=== PATIENT | male | born 1995 | race African-American/Black ===

== ENCOUNTER 2017-12-13 23:32 | Emergency (ER) | payer OTHER ==
--- NOTE | 2017-12-13 23:52 | ER Report ---
History and Physical Time Seen By MD: 23:51 Hx. of Stated Complaint: 30 MIN AGO PT REPORTS CHEST PAIN L SIDE RADIATING TO LOW BACK, SHAKY, TRIED COCAINE ON MONDAY HPI/ROS CHIEF COMPLAINT: chest pain HISTORY OF PRESENT ILLNESS: This is a 22 year old male. He started having chest pain this evening. Sharp pain, radiated across his chest, into his left arm. Somewhat into his back as well. The pain is mostly gone now. He has never had a problem like this in the past. No history of heart problems. He did try using some cocaine about 5 days ago, but none since. He did smoke some marijuana tonight. He has no shortness of breath. He has no nausea or vomiting. No fevers or chills. Mild sore throat and cough earlier in the week. Allergies: Coded Allergies: No Known Drug Allergies (Unverified , 12/13/17) Home Meds No Active Prescriptions or Reported Meds Reviewed Nurses Notes: Yes Hx Substance Use Disorder: Yes (MARIJUANA/COCAINE ) Hx Alcohol Use: Yes (OCC) Constitutional Vital Sign - Last 24 Hours 12/13/17 12/13/17 12/13/17 12/13/17 23:32 23:37 23:38 23:43 Temp 97.8 Pulse ??? 121 Resp 16 B/P (MAP) 154/86 (108) 141/68 (92) Pulse Ox 98 O2 Delivery Room Air 12/13/17 12/13/17 12/14/17 12/14/17 23:45 23:47 00:00 00:02 Pulse 93 89 B/P (MAP) 152/69 (96) 129/81 (97) Pulse Ox 97 95 12/14/17 12/14/17 12/14/17 12/14/17 00:15 00:30 00:32 00:45 Pulse 69 Resp 77 B/P (MAP) ???/??? (1665) 125/59 (81) 114/60 (78) Pulse Ox 94 12/14/17 00:47 Pulse 61 Resp 21 Pulse Ox 95 Physical Exam General Appearance: The patient is alert. No acute distress. Eyes: Pupils are equal, round. No pallor, injection or icterus. ENT: Mucous membranes are moist. Normal oral mucosa. Posterior oropharynx is normal. Neck: Supple and non tender. Respiratory: Lungs are clear to auscultation. Cardiovascular: Regular rate and rhythm. No murmurs, gallops or rubs. Normal capillary refill. Gastrointestinal: Abdomen is soft and non tender. Nondistended. Normal active bowel sounds. Neurological: Alert and oriented x3. Skin: Warm and dry. Musculoskeletal: Chest non-tender to palpation. No tenderness in palpation of the thoracic and lumbar spine. DIFFERENTIAL DIAGNOSIS: After history and physical exam, differential diagnosis was considered for chest pain including but not limited to myocardial ischemia, pericarditis pulmonary embolus, chest wall pain, pleural inflammation and pulmonary infectious causes. Medical Decision Making Data Points Result Diagram: 12/14/17 0000 12/14/17 0000 Laboratory Hematology Test 12/14/17 00:00 Red Blood Count 5.30 M/uL (4.00-5.60) Mean Corpuscular Volume 82.5 fL (80.0-96.0) Mean Corpuscular Hemoglobin 28.2 pg (26.0-33.0) Mean Corpuscular Hemoglobin Concent 34.2 g/dL (32.0-36.0) Red Cell Distribution Width 13.2 % (11.5-14.5) Mean Platelet Volume 8.4 fL (7.2-11.1) Neutrophils (%) (Auto) % (39.4-72.5) Lymphocytes (%) (Auto) % (17.6-49.6) Monocytes (%) (Auto) % (4.1-12.4) Eosinophils (%) (Auto) % (0.4-6.7) Basophils (%) (Auto) % (0.3-1.4) Nucleated RBC Relative Count (auto) /100WBC Neutrophils # (Auto) K/uL (2.0-7.4) Lymphocytes # (Auto) K/uL (1.3-3.6) Monocytes # (Auto) K/uL (0.3-1.0) Eosinophils # (Auto) K/uL (0.0-0.5) Basophils # (Auto) K/uL (0.0-0.1) Nucleated RBC Absolute Count (auto) K/uL Neutrophils % (Manual) 26 % (39.4-72.5) Band Neutrophils % 1 % Lymphocytes % (Manual) 46 % (17.6-49.6) Atypical Lymphocytes % 21 % Monocytes % (Manual) 5 % (4.1-12.4) Eosinophils % (Manual) 1 % (0.4-6.7) Basophils % (Manual) 0 % (0.3-1.4) Differential Comment Y Peripheral Blood Smear Yes Y/N D-Dimer Quantitative (PE/DVT) 0.29 ug/ml (0-0.50) Sodium Level 140 mmol/L (137-145) Potassium Level 3.2 mmol/L (3.5-5.0) Chloride Level 100 mmol/L (98-107) Carbon Dioxide Level 23 mmol/L (22-30) Blood Urea Nitrogen 21 mg/dl (9-21) Creatinine 1.20 mg/dl (0.66-1.25) Glomerular Filtration Rate Calc > 60.0 Random Glucose 120 mg/dl (75-110) Calcium Level 9.3 mg/dl (8.4-10.2) Total Bilirubin 0.4 mg/dl (0.2-1.3) Aspartate Amino Transf (AST/SGOT) 23 U/L (0-35) Alanine Aminotransferase (ALT/SGPT) 24 U/L (0-56) Alkaline Phosphatase 48 U/L (0-126) Troponin I < 0.012 ng/ml Total Protein 7.3 gm/dl (6.3-8.2) Albumin 4.2 g/dl (3.5-5.0) Chemistry Test 12/14/17 00:00 White Blood Count 7.7 k/uL (4.5-11.0) Red Blood Count 5.30 M/uL (4.00-5.60) Hemoglobin 14.9 g/dL (14.0-18.0) Hematocrit 43.7 % (42.0-52.0) Mean Corpuscular Volume 82.5 fL (80.0-96.0) Mean Corpuscular Hemoglobin 28.2 pg (26.0-33.0) Mean Corpuscular Hemoglobin Concent 34.2 g/dL (32.0-36.0) Red Cell Distribution Width 13.2 % (11.5-14.5) Platelet Count 181 K/uL (150-450) Mean Platelet Volume 8.4 fL (7.2-11.1) Neutrophils (%) (Auto) % (39.4-72.5) Lymphocytes (%) (Auto) % (17.6-49.6) Monocytes (%) (Auto) % (4.1-12.4) Eosinophils (%) (Auto) % (0.4-6.7) Basophils (%) (Auto) % (0.3-1.4) Nucleated RBC Relative Count (auto) /100WBC Neutrophils # (Auto) K/uL (2.0-7.4) Lymphocytes # (Auto) K/uL (1.3-3.6) Monocytes # (Auto) K/uL (0.3-1.0) Eosinophils # (Auto) K/uL (0.0-0.5) Basophils # (Auto) K/uL (0.0-0.1) Nucleated RBC Absolute Count (auto) K/uL Neutrophils % (Manual) 26 % (39.4-72.5) Band Neutrophils % 1 % Lymphocytes % (Manual) 46 % (17.6-49.6) Atypical Lymphocytes % 21 % Monocytes % (Manual) 5 % (4.1-12.4) Eosinophils % (Manual) 1 % (0.4-6.7) Basophils % (Manual) 0 % (0.3-1.4) Differential Comment Y Peripheral Blood Smear Yes Y/N D-Dimer Quantitative (PE/DVT) 0.29 ug/ml (0-0.50) Glomerular Filtration Rate Calc > 60.0 Calcium Level 9.3 mg/dl (8.4-10.2) Total Bilirubin 0.4 mg/dl (0.2-1.3) Aspartate Amino Transf (AST/SGOT) 23 U/L (0-35) Alanine Aminotransferase (ALT/SGPT) 24 U/L (0-56) Alkaline Phosphatase 48 U/L (0-126) Troponin I < 0.012 ng/ml Total Protein 7.3 gm/dl (6.3-8.2) Albumin 4.2 g/dl (3.5-5.0) Coagulation Test 12/14/17 00:00 D-Dimer Quantitative (PE/DVT) 0.29 ug/ml EKG/Imaging EKG Interpretation 12 lead EKG: Rhythm: normal sinus rhythm, rate 94 [place]: normal QRS: normal ST segments: normal Imaging CHEST PA AND LAT History: Chest pain Comparison none. FINDINGS: Lungs are clear, no effusion. No pneumothorax. Heart size within normal limits. Mediastinal contour within normal limits. IMPRESSION: No evidence of acute cardiopulmonary disease. Report Dictated By: Turner Treadwell MD at 12/14/2017 12:33 AM ED Course/Re-evaluation Clinical Indication for ER IV: IV Access ED Course Patient given aspirin 81mg chewable x4. IV started. Labs unremarkable. EKG without signs of ischemia. Chest x-ray normal. Reviewed all of this with the patient. Doubt this had anything to do with the cocaine use. Perhaps some inflammation in the lungs, but no sign of infectious process. Negative for PE. Negative for AK. Decision to Disposition Date: Dec 14, 2017 Decision to Disposition Time: 00:48 Depart Departure Latest Vital Signs Vital Signs Date Time Temp Pulse Resp B/P (MAP) Pulse Ox O2 Delivery O2 Flow Rate FiO2 12/14/17 00:47 61 21 95 12/14/17 00:45 114/60 (78) 12/13/17 23:37 97.8 Room Air Impression: Primary Impression: Chest pain Condition: Improved Disposition: HOME OR SELF-CARE New Scripts No Active Prescriptions or Reported Meds Patient Instructions: Chest Pain (ED) Additional Instructions: Ibuprofen 200mg over the counter tablets, take 4 tablets every 8 hours as needed for pain. Problem Qualifiers Primary Impression: Chest pain Chest pain type: unspecified Qualified Codes: R07.9 - Chest pain, unspecified ROSELIA MOORE MD Dec 13, 2017 23:52
[2017-12-14] MEDS ORDERED: ASPIRIN 81 MG CHEW PO ONE (00:05)
[2017-12-14 00:13] LABS: PLATELET COUNT, AUTOMATED 181 K/uL (150-450)
--- NOTE | 2017-12-14 00:38 | RADIOLOGY IMAGING REPORT ---
FACILITY: [facility] - [place] PATIENT NAME: Severino Powers : 1995 MR: [id number] V: [id number] EXAM DATE: [id number] ORDERING PHYSICIAN: ROSELIA MOORE TECHNOLOGIST: Location: [facility] [place] Patient: Severino Powers : 1995 Visit/Account:[id number] Date of Sevice: 12/14/2017 CHEST PA AND LAT History: Chest pain Comparison none. FINDINGS: Lungs are clear, no effusion. No pneumothorax. Heart size within normal limits. Mediastinal contour w ithin normal limits. IMPRESSION: No evidence of acute cardiopulmonary disease. Report Dictated By: Turner Treadwell MD at 12/14/2017 12:33 AM Report E-Signed By: Turner Treadwell MD at 12/14/2017 12:34 AM [id number]
[2017-12-14 00:45] VITALS: BP 114/60
--- NOTE | 2017-12-14 01:24 | EKG ---
FACILITY: [facility] PATIENT NAME: BETH PERALES : [id number] MR: [id number] V: [id number] EXAM DATE: ORDERING PHYSICIAN: ROSELIA MOORE TECHNOLOGIST: TJ Test Reason : CP Blood Pressure : / mmHG Vent. Rate : 094 BPM Atrial Rate : 094 BPM P-R Int : 132 ms QRS Dur : 090 ms QT Int : 358 ms P-R-T Axes : 078 096 027 degrees QTc Int : 447 ms Normal sinus rhythm T inversion consistent with inferior ishcemia vs normal variant No previous ECGs available Confirmed by GWEN ALLAN ([id number]) on 12/14/2017 6:46:46 AM Referred By: Confirmed By:GWEN ALLAN
== END 2017-12-14 01:05 | disposition home or self-care (01) ==
LOC: ER 23:59
DX: R07.9 Chest pain, unspecified (principal); F12.90 Cannabis use, unspecified, uncomplicated; F14.90 Cocaine use, unspecified, uncomplicated
CPT/HCPCS: 71046; 82040; 82247; 82310; 82374; 82435; 82565; 82947; 84075; 84132; 84155; 84295; 84450; 84460; 84484; 84520; 85025; 85379; 93005; 99284

== ENCOUNTER 2018-12-25 08:09 | Emergency (ER) | payer OTHER ==
[2018-12-25 08:12] VITALS: BP 120/88
[2018-12-25] MEDS ORDERED: ENT KIT ONE (08:39)
--- NOTE | 2018-12-25 08:44 | ER Report ---
History and Physical Time Seen By MD: 08:43 Hx. of Stated Complaint: nose bleed HPI/ROS CHIEF COMPLAINT: Nosebleed HISTORY OF PRESENT ILLNESS: Patient is an otherwise healthy 23-year-old male who started with bleeding from his right naris this morning and has having difficulty getting it stopped. No prior history of similar episodes. He denies having any type of blood dyscrasias. Patient denies any traumatic injury to the nose. Allergies: Coded Allergies: No Known Drug Allergies (Unverified , 12/25/18) Home Meds No Active Prescriptions or Reported Meds Past Medical/Surgical History Noncontributory towards to see if complaints. Hx Substance Use Disorder: Yes (MARIJUANA/COCAINE ) Hx Alcohol Use: Yes (OCC) Constitutional Vital Sign - Last 24 Hours 12/25/18 08:12 Temp 98.7 Pulse 63 Resp 16 B/P (MAP) 120/88 Pulse Ox 95 O2 Delivery Room Air Physical Exam General Appearance: Alert, no distress. Eyes: Pupils equal and round no pallor or injection. ENT, Mouth: Ears: Tympanic membranes are normal. Nose: Bleeding from right naris Mouth: Mucous membranes are moist. Throat: No erythema or exudates there is no tonsillar hypertrophy and uvula is midline. Musculoskeletal: Neck is supple non tender, no adenopathy. Skin: Warm and dry, no rashes. Medical Decision Making ED Course/Re-evaluation ED Course 12/25/2018 8:44:39 am I had patient blow his nose to remove any clots. The source of bleeding was verified in the right naris. Right naris was sprayed with Afrin and a cotton ball and patient is currently holding direct pressure. 12/25/2018 9:09:33 am . Bleeding has stopped. We'll discharge home at this time. Decision to Disposition Date: Dec 25, 2018 Decision to Disposition Time: 09:09 Depart Departure Latest Vital Signs Vital Signs Date Time Temp Pulse Resp B/P (MAP) Pulse Ox O2 Delivery O2 Flow Rate FiO2 12/25/18 08:12 98.7 63 16 120/88 95 Room Air Impression: Primary Impression: Nosebleed Condition: Improved Disposition: HOME OR SELF-CARE New Scripts No Active Prescriptions or Reported Meds Departure Forms: Medications Reconciliation, Patient Portal Information, ER Transition Record Patient Instructions: Nosebleed (GEN) RHONDA MASON MD Dec 25, 2018 08:44
[2018-12-25] MEDS ORDERED: PHENYLEPHRINE 0.5% 15 ML BTL ONE (08:45)
== END 2018-12-25 09:20 | disposition home or self-care (01) ==
LOC: ER 08:19
DX: R04.0 Epistaxis (principal)
CPT/HCPCS: 99282